=== PATIENT | male | born 2000 | race Caucasian/White ===

== ENCOUNTER 2021-09-25 11:08 | Emergency (ER) | payer SELFPAY ==
[~2021-09-25] VITALS: Ht 162.6 cm; Wt 73.0 kg
[2021-09-25 11:33] VITALS: BP 121/81
[2021-09-25] MEDS ORDERED: IBUPROFEN 600MG TABLET PO ONE (11:45)
[2021-09-25] MEDS ORDERED: BACITRACIN ZINC OINT UDPKT TOP ONE (11:45)
[2021-09-25] MEDS ORDERED: TETANUS, DIPHTHERIA, PERTUSSIS VAC/PF 0.5ML (>10YR OLD) IM ONE ×2 (11:45→13:30)
[2021-09-25] MEDS ORDERED: LIDOCAINE HCL/PF 1% 10 MG/ML 5ML VIAL INFIL ONE (11:45)
[2021-09-25] MEDS ORDERED: IBUP-2029 MT (13:17)
[2021-09-25] MEDS ORDERED: CEPH500T MT (13:17)
== END 2021-09-25 13:49 | disposition home or self-care (01) ==
LOC: ER 11:08
DX: S61.212A Laceration without foreign body of right middle finger without damage to nail, initial encounter (principal); W22.8XXA Striking against or struck by other objects, initial encounter; Y93.89 Activity, other specified; Y92.89 Other specified places as the place of occurrence of the external cause
CPT/HCPCS: 12001; 73140; 90471; 90715; 99283; J3490

== ENCOUNTER 2021-09-28 07:27 | Emergency (ER) | payer MEDICAID ==
[~2021-09-28] VITALS: Ht 167.6 cm; Wt 82.0 kg
[~2021-09-28 07:27] MED LIST: CEPH500T MT; IBUP-2029 MT
[2021-09-28 07:31] VITALS: BP 115/56
== END 2021-09-28 08:29 | disposition home or self-care (01) ==
LOC: ER 07:27
DX: S61.212D Laceration without foreign body of right middle finger without damage to nail, subsequent encounter (principal); X58.XXXD Exposure to other specified factors, subsequent encounter
CPT/HCPCS: 99281

== ENCOUNTER 2021-10-20 11:11 | Emergency (ER) | payer MEDICAID ==
[~2021-10-20] VITALS: Ht 167.6 cm; Wt 78.0 kg
[2021-10-20 11:24] VITALS: BP 113/41
== END 2021-10-20 16:07 | disposition home or self-care (01) ==
LOC: ER 11:11
DX: Z48.02 Encounter for removal of sutures (principal)
CPT/HCPCS: 99281